=== PATIENT | male | born 1980 | race Two or more races ===

== ENCOUNTER 2022-12-06 23:52 | Emergency (ER) | payer OTHER ==
[~2022-12-06] VITALS: Ht 170.2 cm; Wt 85.0 kg
[2022-12-07 00:07] VITALS: BP 127/64; PULSE 70; RESP 17; TEMP 97.8
[2022-12-07] MEDS ORDERED: PROPARACAINE HCL 0.5% 15 ML OPHTHALMIC SOLUTION OD ONE (01:00)
[2022-12-07] MEDS ORDERED: FLUORESCEIN SODIUM 1 MG STRIP OD ONE (01:00)
[2022-12-07] MEDS ORDERED: TOBRAMYCIN/DEXAMETHASONE 5 ML OPHTHALMIC SUSPENSION OD ONE (01:00)
== END 2022-12-07 01:45 | disposition home or self-care (01) ==
LOC: EMS 23:53
DX: T15.01XA Foreign body in cornea, right eye, initial encounter (principal)
CPT/HCPCS: 99283